=== PATIENT | female | born 1970 | race Caucasian/White ===

== ENCOUNTER → 2023-08-29 | Outpatient (CLI) | payer OTHER, SELFPAY ==
--- NOTE | 2023-08-29 12:49 | BI_ITS ---
MAMMOGRAPHY - BILATERAL SCREENING REASON FOR EXAM: Female, 53 years old. Routine annual screening examination. PERTINENT HISTORY: Non-contributory. TECHNIQUE: Digital bilateral breast forrest (3D mammographic acquisition) in the CC and MLO projections. 2-D mediolateral oblique (MLO) and craniocaudad (CC) views of both breasts were obtained. CAD: Full Field Digital Mammography with Computer Added Detection was performed. COMPARISON: Comparison is made with prior study November 10, 2010. FINDINGS: Breast Composition: The breasts are heterogeneously dense, which may obscure small masses. There are no dominant masses or suspicious calcifications. Stable small benign-appearing bilateral axillary lymph nodes. No other significant abnormalities are identified. There has been no significant change since the prior study. BI/SCRN MAMM (CAD)W/FORREST BILAT IMPRESSION: Stable bilateral screening mammogram. Yearly follow-up mammogram recommended. (A) ASSESSMENT CATEGORY: BIRADS Category 2: Benign. A letter regarding these results will be sent to the patient by the facility within 30 days. Approximately 10% of breast cancers are not detected by mammography. A normal mammogram should not delay biopsy of a clinically suspicious abnormality. [id number] Electronically Signed: Hector Lancaster MD at 14:16 EDT ,
--- OUTSIDE RECORDS SUMMARY | 2023-08-29 20:59 | XMS RPT_ITS | CCD ---
Author Name Unknown Address [address] [place] [address] Organization [facility] Care Team Providers Care Molder Punch Name Role Phone Lebron Acharya MD Unavailable Francisco Lafleur Primary Care Provider Darlene Peña PA-C Primary Care Provider [phone] DARLENE PEÑA Primary Care Unavailable LEIPSIC, DARLENE Consulting Unavailable LEIPSIC, DARLENE Attending Unavailable LEIPSIC, DARLENE Admitting Unavailable PROVIDER, UNKNOWN Consulting Unavailable LEIPSIC, DARLENE Admitting Unavailable LEIPSIC, DARLENE Primary Care Unavailable LEIPSIC, DARLENE Consulting Unavailable LEIPSIC, DARLENE Attending Unavailable PROVIDER, UNKNOWN Consulting Unavailable LEIPSIC, DARLENE Admitting Unavailable LEIPSIC, DARLENE Primary Care Unavailable LEIPSIC, DARLENE Consulting Unavailable LEIPSIC, DARLENE Attending Unavailable PROVIDER, UNKNOWN Consulting Unavailable LEIPSIC, DARLENE Admitting Unavailable LEIPSIC, DARLENE Primary Care Unavailable LEIPSIC, DARLENE Consulting Unavailable LEIPSIC, DARLENE Attending Unavailable PROVIDER, UNKNOWN Consulting Unavailable [place] Darlene SOLARES Primary Care Provider [phone] DARLENE PEÑA Primary Care Unavailable LEOLA, DARLENE Davila Primary Care Unavailable Medications Current Medications Medication Drug Class(es) Dates Sig (Normalized) Sig (Original) doxycycline hyclate 100 mg oral tablet (1 source) Tetracycline-clas s Drug Start: 11-14-2021 End: 11-21-2021 take 1 tablet by mouth twice daily doxycycline (VIBRA-TABS) 100 mg tablet Indications: Skin infection Take 1 tablet by mouth twice daily for 7 days. 14 tablet 0 11/14/2021 11/21/2021 Active Completed/Discontinued Medications Medication Drug Class(es) Dates Sig (Normalized) Sig (Original) 200 actuat albuterol 0.09 mg/actuat metered dose inhaler (2 sources) beta2-Adrenergic Agonist Start: 08-22-2005 End: 07-03-2022 take 2 puff(s) by inhalation every four hours as needed ALBUTEROL 90 MCG/ACTUATION AEROSOL INHALER Indications: Acute bronchitis 2 puffs q 4 hrs as needed 1 1 08/22/2005 07/03/2022 Discontinued Problems Active Problems Problem Classification Problem Date Documented Date Episodic/Chronic Diabetes mellitus with complications (3 sources) Type 2 diabetes mellitus with hyperglycemia; Translations: [Type 2 diabetes mellitus with hyperglycemia] Onset: 11-16-2022 Chronic Disorders of lipid metabolism (1 source) Hyperlipidemia, unspecified; Translations: [Hyperlipidemia, unspecified] Onset: 11-16-2022 Chronic Essential hypertension (4 sources) Benign essential hypertension; Translations: [Essential (primary) hypertension] Onset: 02-01-2005 02-01-2005 Chronic Fluid and electrolyte disorders (3 sources) Hypokalemia; Translations: [Hypokalemia] Onset: 12-06-2022 Episodic Immunizations and screening for infectious disease (1 source) Contact with and (suspected) exposure to other viral communicable diseases; Translations: [Contact with or exposure to other viral diseases] Episodic Influenza (1 source) Influenza-like illness; Translations: [Influenza due to unidentified influenza virus with other respiratory manifestations] Episodic Mycoses (1 source) Opportunistic mycosis; Translations: [Candidiasis, unspecified] Episodic Osteoarthritis (2 sources) Osteoarthrosis of the carpometacarpal joint of the thumb; Translations: [Unilateral primary osteoarthritis of first carpometacarpal joint, left hand] Onset: 07-25-2018 07-25-2018 Chronic Other circulatory disease (1 source) Elevated blood pressure; Translations: [Elevated blood-pressure reading, without diagnosis of hypertension] Episodic Other nutritional; endocrine; and metabolic disorders (4 sources) Metabolic syndrome X; Translations: [Metabolic syndrome] Onset: 02-01-2005 02-01-2005 Chronic Skin and subcutaneous tissue infections (1 source) Infection of skin; Translations: [Local infection of the skin and subcutaneous tissue, unspecified] Episodic Viral infection (1 source) Disease caused by 2019-nCoV; Translations: [COVID-19] 06-10-2023 Episodic Past or Other Problems Problem Classification Problem Date Documented Da te Episodic/Chronic Diabetes mellitus without complication (4 sources) Impaired fasting glycemia; Translations: [Impaired fasting glucose] Onset: 02-01-2005 02-01-2005 Episodic Unclassified (1 source) Problem Results Test Name Value Interpretation Reference Range Facil ity Vital Signs Date Time Vital Sign Value Performing Clinician Facility 06-10-2023 11:24-0500 Body temperature 100.51 [degF] Yahir Miguel RELEASE OF INFORMATION SPECIALIST.DINING ROOM HELPER Work Phone: [facility] 06-10-2023 11:24-0500 Body weight 145.33 kg Yahir Miguel RELEASE OF INFORMATION SPECIALIST.DINING ROOM HELPER Work Phone: [facility] 06-10-2023 11:24-0500 Diastolic blood pressure 106 mm[Hg] Yahir Miguel RELEASE OF INFORMATION SPECIALIST.DINING ROOM HELPER Work Phone: [facility] 06-10-2023 11:24-0500 Heart rate 87 /min Yahri Miguel RELEASE OF INFORMATION SPECIALIST.DINING ROOM HELPER Work Phone: [facility] 06-10-2023 11:24-0500 Respiratory rate 18 /min Yahir Miguel RELEASE OF INFORMATION SPECIALIST.DINING ROOM HELPER Work Phone: [facility] 06-10-2023 11:24-0500 SaO2% (BldA) [Mass fraction] 97 % Yahir Miguel RELEASE OF INFORMATION SPECIALIST.DINING ROOM HELPER Work Phone: [facility] 06-10-2023 11:24-0500 Systolic blood pressure 182 mm[Hg] Yahir Miguel RELEASE OF INFORMATION SPECIALIST.DINING ROOM HELPER Work Phone: [facility] 07-03-2022 11:17-0500 Body temperature 99.61 [degF] Cassius Ortega MD Work Phone: [facility] 07-03-2022 11:17-0500 Body weight 138.53 kg Cassius Ortega MD Work Phone: [facility] 07-03-2022 11:17-0500 Diastolic blood pressure 80 mm[Hg] Cassius Ortega MD Work Phone: [facility] 07-03-2022 11:17-0500 Heart rate 100 /min Cassius Ortega MD Work Phone: [facility] 07-03-2022 11:17-0500 Respiratory rate 16 /min Cassius Ortega MD Work Phone: [facility] 07-03-2022 11:17-0500 SaO2% (BldA) [Mass fraction] 96 % Cassius Ortega MD Work Phone: [facility] 07-03-2022 11:17-0500 Systolic blood pressure 122 mm[Hg] Cassius Ortega MD Work Phone: [facility] 11-14-2021 13:37-0400 Diastolic blood pressure 92 mm[Hg] [facility] Work Phone: [facility] 11-14-2021 13:37-0400 Systolic blood pressure 152 mm[Hg] [facility] Work Phone: [facility] 11-14-2021 13:29-0400 Body temperature 95.9 [degF] [facility] Work Phone: [facility] 11-14-2021 13:29-0400 Body weight 126.28 kg [facility] Work Phone: [facility] 11-14-2021 13:29-0400 Heart rate 75 /min [facility] Work Phone: [facility] 11-14-2021 13:29-0400 Respiratory rate 21 /min [facility] Work Phone: [facility] 11-14-2021 13:29-0400 SaO2% (BldA) [Mass fraction] 97 % [facility] Work Phone: [facility] NEGATED: Highlighted [id number] 14:20-0500 BMI (Body Mass Index) 46.47 kg/m2 Tracey Wasserman LPN [facility] Work Phone: NEGATED: Highlighted [id number] 14:20-0500 Body weight 140.16 kg Tracey Wasserman LPN [facility] Work Phone: NEGATED: Highlighted [id number] 14:20-0500 Body weight 140 kg Tracey Wasserman SILVER RECOVERY OPERATOR [facility] Work Phone: NEGATED: Highlighted [id number] 14:20-0500 BP Diastolic 81 mm[Hg] Tracey Lux SILVER RECOVERY OPERATOR [facility] Work Phone: NEGATED: Highlighted [id number] 14:20-0500 BP Systolic 107 mm[Hg] Tracey Lux SILVER RECOVERY OPERATOR [facility] Work Phone: NEGATED: Highlighted [id number] 14:20-0500 Height 173.99 cm Tracey Lux SILVER RECOVERY OPERATOR [facility] Work Phone: NEGATED: Highlighted [id number] 14:20-0500 Height 174 cm Tracey Lux SILVER RECOVERY OPERATOR [facility] Work Phone: NEGATED: Highlighted [id number] 14:20-0500 Pulse (Heart Rate) 73 /min Tracey Wasserman SILVER RECOVERY OPERATOR [facility] Work Phone: Encounters Encounter Date Encounter Type Care Provider Facility Start: 06-10-2023 End: 06-10-2023 ambulatory [facility] Facility:[facility] Start: 06-10-2023 End: 06-10-2023 Patient encounter procedure Yahir Miguel APRN.CNP Work Phone: [facility] Procedures Date Procedure Procedure Detail Performing Clinician Start: 07-25-2018 End: 07-25-2018 Blood pressure within normal parameters - no follow-up required Lebron Acharya MD Work Phone: Start: 07-25-2018 End: 07-25-2018 BMI documented as above normal parameters - follow-up documented Lebron Acharya MD Work Phone: Start: 07-25-2018 End: 07-25-2018 Documentation of current medications Lebron Acharya MD Work Phone: Start: 07-25-2018 End: 07-25-2018 Osteoarthritis assess Lebron Acharya MD Work Phone: Start: 07-25-2018 End: 07-25-2018 Pain assessment documented as positive - follow-up documented Lebron Acharya MD Work Phone: Start: 07-25-2018 End: 07-25-2018 Radex hand minimum 3 views Lebron Acharya MD Work Phone: Start: 07-25-2018 End: 07-25-2018 DEON PEE - CUSTOM PREFAB Lebron Acharya MD Work Phone: Start: 07-25-2018 End: 07-25-2018 Thumb Spica Lebron Acharya MD Work Phone: Start: 07-25-2018 End: 07-25-2018 Tobacco non-user Lebron Acharya MD Work Phone: Start: 07-25-2018 End: 07-25-2018 WHFO CUSTOM STATIC Lebron Acharya MD Work Phone: Start: 10-28-2002 Lipid 1996 panel - S maria c or Plasma Yahir Miguel APRN.DINING ROOM HELPER Work Phone: NEGATED: Highlighted rowStart: 07-25-2018 End: 07-25-2018 Documentation of current medications Tracey Wasserman LPN Plan of Treatment Date Care Activity Detail Author Start: 11-16-2025 Diabetes Screening Diabetes Screenin g [facility] Start: 02-16-2023 Covid-19 Vaccine ( season) Covid-19 Vaccine ( season) [facility] Start: 02-16-2023 Influenza vaccination Influenza Vacc ine (#1) [facility] Start: 07-03-2022 End: 07-17-2022 Influenza virus A and B RNA and SARS-CoV-2 (COVID-19) N gene panel - Respiratory specimen by VITO with probe detection [facility] Work Phone: Immunizations Immunization Date Immunization Notes Care Provider Fa cilivalorie 05-03-2020 influenza virus vaccine, unspecified formulation Yahir Miguel APRN.DINING ROOM HELPER Work Phone: [facility] 03-18-2009 influenza virus vaccine, unspecified formulation [facility] Work Phone: [facility] 05-12-2008 influenza virus vaccine, unspecified formulation [facility] Work Phone: [facility] Work Phone: 05-15-2006 influenza virus vaccine, unspecified formulation [facility] Work Phone: [facility] 01-13-2005 tetanus and diphther ia toxoids, not adsorbed, for adult use [facility] Work Phone: [facility] Work Phone: Payers Date Payer Category Payer Private Health Insurance [id number] 2019 Private Health Insurance JENNIFER YI TABATHA [id number] 2019-Present [phone] [address] [place] [address] Open Access [id number] 2019 Private Health Insurance [id number] 2019 Private Health Insurance [id number] 1968 Unknown [id number] 1968 Unknown [id number] 1968 Unknown [id number] 1968 Unknown [id number] Private Health Insurance [id number] Social History Date Type Detail Facility Start: 07-25-2018 End: 07-25-2018 Assertion Unknown if ever smoked [facility] Work Phone: Start: 07-03-2022 Tobacco smoking status NHIS Ex-smoker [facility] Start: 11-14-2021 End: 06-10-2023 Alcohol intake Current drinker of alcohol (finding) [facility] Start: 1970 Sex Assigned At Not on file [facility] History of tobacco use Current smoker [facility] Work Phone: History of tobacco use Cigarette Smoker [facility] Work Phone: Start: 07-03-2022 Tobacco use and exposure Smokeless tobacco non-user [facility] Work Phone: Start: 07-03-2022 Tobacco Comment quit 2002, smo ked 1-2 cigarettes daily [facility] Start: 05-26-2020 End: 06-10-2023 History of Social function [facility] Start: 05-26-2020 End: 06-10-2023 Tobacco use panel [facility] National Score (1-100), lower number is lower risk Not on file [facility] NEGATED: Highlighted rowStart: 07-25-2018 End: 07-25-2018 Employment detail Employment detail [facility] Work Phone: NEGATED: Highlighted rowStart: 07-25-2018 End: 07-25-2018 How many days of moderate to strenuous exercise, like a brisk walk, did you do in the last 7 days? How many days of moderate to strenuous exercise, like a brisk walk, did you do in the last 7 days? [facility] Work Phone: Clinical Notes 11-14-2021 to 06-10-2023 Yahir Miguel APRN.CNP - 06/10/2023 11:59 AM ESTTelephone Encounter - Brittnee Canchola - 07/04/2022 7:22 AM ESTTelephone Encounter - Yahir Miguel APRN.CNP - 07/04/2022 7:17 AM EST Note Date & Type Note Facility 06-10-2023 Note HNO ID: [id number] Author: Yahir Miguel APRN.CNP Service: ? Author Type: Nurse Practitioner Type: Progress Notes Filed: 06/10/2023 12:11 PM Note Text: Subjective HPI HPI Lubna Mast is a 52 year old female who presents today for CC of cough, congestion, chills, body aches. This started 1 day ago, tested pos for covid. Denies cp/sob .Patient presents with: Covid Positive: Tested positive for COVID this am-wants antiviral medication ordered PAST MEDICAL HISTORY Diagnosis Date Dysmetabolic syndrome X Essential hypertension, benign Impaired fasting glucose PAST SURGICAL HISTORY Procedure Laterality Date DILATION AND CURETTAGE DXAND/THER NONOBSTETRIC 1998 Dilation AND curettage ALLERGIES Patient has no known allergies. MEDICATIONS escitalopram oxalate (LEXAPRO) 10 mg tablet glipiZIDE (GLUCOTROL) 5 mg tablet Take 5 mg by mouth daily at bedtime. hydroCHLOROthiazide (HYDRODIURIL, ESIDRIX) 12.5 mg tablet Take 12.5 mg by mouth once daily. METFORMIN HCL (METFORMIN ORAL) Take by mouth. LABETALOL 100 MG TAB Take one(1) tablet two(2) times daily. nirmatrelvir tablet 300 mg (150 mg x 2) and ritonavir tablet 100 mg in a dose pack (PAXLOVID) Administer TWO pink nirmatrelvir 150 mg tablets and ONE white ritonavir 100 mg tablet for a total of three tablets twice daily. FAMILY HISTORY Problem Relation Age of Onset Diabetes Paternal Grandfather other (Ovarian Ca [Other]) Paternal Grandmother Social History Tobacco Use Smoking status: Former Years: 5 Types: Cigarettes Smokeless tobacco: Never Tobacco comments: quit 2002, smoked 1-2 cigarettes daily Substance Use Topics Alcohol use: Yes Comment: very rarely Drug use: No Review of Systems Constitutional: Negative for fever. HENT: Positive for congestion and ear pain. Negative for ear discharge, nosebleeds and sore throat. Respiratory: Positive for cough. Negative for shortness of breath and wheezing. Cardiovascular: Negative for chest pain. Musculoskeletal: Negative for neck pain. Objective Blood pressure 182/106, pulse 87, temperature (!) 38.1 ?C (100.5 ?F), temperature source Tympanic, resp. rate 18, weight (!) 145.3 kg (320 lb 6.4 oz), last menstrual period 07/19/2016, SpO2 97%. Physical Exam Constitutional: General: She is not in acute distress. Appearance: She is not toxic-appearing or diaphoretic. HENT: Head: Normocephalic and atraumatic. Cardiovascular: Rate and Rhythm: Normal rate and regular rhythm. Heart sounds: Normal heart sounds, S1 normal and S2 normal. Pulmonary: Effort: Pulmonary effort is normal. Breath sounds: Normal breath sounds. Lymphadenopathy: Cervical: No cervical adenopathy. Right cervical: No superficial cervical adenopathy. Left cervical: No superficial cervical adenopathy. Neurological: Mental Status: She is alert and oriented to person, place, and time. Gait: Gait is intact. ASSESSMENT/PLAN: 1. COVID-19 - ICD9: 079.89, ICD10: U07.1 Discussed quarantine, social distancing otc medications discussed Push fluids -If you experience chest pain/shortness of breath go to ER 2022 creatinine .85 per outside lab result - NIRMATRELVIR 300 MG (150 MG X2)-RITONAVIR 100 MG TABLET,DOSE PACK Yahir Miguel APRN.[facility] 06-10-2023 History of Presen t illness Narrative Subjective HPI HPI Lubna Mast is a 52 year old female who presents today for CC of cough, congestion, chills, body aches. This started 1 day ago, tested pos for covid. Denies cp/sob .Patient presents with: Covid Positive: Tested positive for COVID this am-wants antiviral medication ordered PAST MEDICAL HISTORY Diagnosis Date Dysmetabolic syndrome X Essential hypertension, benign Impaired fasting glucose PAST SURGICAL HISTORY Procedure Laterality Date DILATION & CURETTAGE DX&/THER NONOBSTETRIC 1998 Dilation & curettage ALLERGIES Patient has no known allergies. MEDICATIONS escitalopram oxalate (LEXAPRO) 10 mg tablet glipiZIDE (GLUCOTROL) 5 mg tablet Take 5 mg by mouth daily at bedtime. hydroCHLOROthiazide (HYDRODIURIL, ESIDRIX) 12.5 mg tablet Take 12.5 mg by mouth once daily. METFORMIN HCL (METFORMIN ORAL) Take by mouth. LABETALOL 100 MG TAB Take one(1) tablet two(2) times daily. nirmatrelvir tablet 300 mg (150 mg x 2) and ritonavir tablet 100 mg in a dose pack (PAXLOVID) Administer TWO pink nirmatrelvir 150 mg tablets and ONE white ritonavir 100 mg tablet for a total of three tablets twice daily. FAMILY HISTORY Problem Relation Age of Onset Diabetes Paternal Grandfather other (Ovarian Ca [Other]) Paternal Grandmother Social History Tobacco Use Smoking status: Former Years: 5 Types: Cigarettes Smokeless tobacco: Never Tobacco comments: quit 2002, smoked 1-2 cigarettes daily Substance Use Topics Alcohol use: Yes Comment: very rarely Drug use: No Review of Systems Constitutional: Negative for fever. HENT: Positive for congestion and ear pain. Negative for ear discharge, nosebleeds and sore throat. Respiratory: Positive for cough. Negative for shortness of breath and wheezing. Cardiovascular: Negative for chest pain. Musculoskeletal: Negative for neck pain. Objective Blood pressure 182/106, pulse 87, temperature (!) 38.1 C (100.5 F), temperature source Tympanic, resp. rate 18, weight (!) 145.3 kg (320 lb 6.4 oz), last menstrual period 07/19/2016, SpO2 97%. Physical Exam Constitutional: General: She is not in acute distress. Appearance: She is not toxic-appearing or diaphoretic. HENT: Head: Normocephalic and atraumatic. Cardiovascular: Rate and Rhythm: Normal rate and regular rhythm. Heart sounds: Normal heart sounds, S1 normal and S2 normal. Pulmonary: Effort: Pulmonary effort is normal. Breath sounds: Normal breath sounds. Lymphadenopathy: Cervical: No cervical adenopathy. Right cervical: No superficial cervical adenopathy. Left cervical: No superficial cervical adenopathy. Neurological: Mental Status: She is alert and oriented to person, place, and time. Gait: Gait is intact. ASSESSMENT/PLAN: 1. COVID-19 - ICD9: 079.89, ICD10: U07.1 Discussed quarantine, social distancing otc medications discussed Push fluids -If you experience chest pain/shortness of breath go to ER 2022 creatinine .85 per outside lab result - NIRMATRELVIR 300 MG (150 MG X2)-RITONAVIR 100 MG TABLET,DOSE PACK Yahir Miguel APRN.DINING ROOM HELPER documented in this encounter [facility] 07-04-2022 Miscellaneous Notes Patient given results and verbalized understanding of instructions given. Brittnee Canchola Please notify that covid/flu testing negative. Continue with plan of care as discussed during visit. documented in this encounter [facility] 07-03-2022 Influenza virus A and B RNA and SARS-CoV-2 (COVID-19) N gene panel VITO+probe (Resp) COVID 19 RESULT: SARS-CoV-2 (Agent of COVID-19) Not Detected by RT-PCR or equivalent method. This test was developed and its performance characteristics determined by [facility]'s [facility] [place]. This test has been authorized by FDA under an Emergency Use Authorization (EUA). This test has been validated in accordance with the FDA's Guidance Document Policy for Diagnostics Testing in Laboratories Certified to Perform High Complexity Testing under CLIA prior to Emergency use Authorization for Coronavirus Disease 2019 during the Public Health Emergency issued on August 16, 2019. Test performed by [facility], [facility] [place], [address] [place] [address]. INFLUENZA A PCR: Negative for Influenza A by RT-PCR INFLUENZA B PCR: Negative for Influenza B by RT-PCR [facility] Influenza-like illness- Primary Influenza with other respiratory manifestations Exposure to influenza Contact with or exposure to other viral diseases [facility] COVID-19- Primary documented in this encounter [facility] Summary Purpose Family History No Family History Records FoundNo Family History Records FoundThere may be information available, but it has not been provided by the sender.No Family History Records FoundNo Family History Records Found Advance Directives No Advanced Directives Records FoundNo Advanced Directives Records FoundThere may be information available, but it has not been provided by the sender.No Advanced Directives Records FoundNo Advanced Directives Records Found Chief Complaint Chief Complaint Description Start Date bilateral hand pain Preliminary chief co mplaint data, not yet signed by the author as of Instructions Instruction Description Start Date Patient advised to follow-up with Primary Care Physician for BMI management. Assessments There may be information available, but it has not been provided by the sender. Review of System There may be information available, but it has not been provided by the sender. History of Present Illness There may be information available, but it has not been provided by the sender. Health Concerns Infection Onset Date Last Indicated Resolved Time COVID-19 Rule-Out 07/03/2022 07/03/2022 Additional Source Comments INFORMATION SOURCE (unrecogn ized section and content) DATE CREATED AUTHOR AUTHOR'S ORGANIZ ATION 08/30/2019 [facility] DATE CREATED AUTHOR AUTHOR'S ORGANIZ ATION 12/16/2022 [facility] DATE CREATED AUTHOR AUTHOR'S ORGANIZ ATION 06/10/2023 [facility] Reason for Visit (unrecogniz ed section and content) Reason Comments Edema cellulitis on right leg x 1 day Reason Comments Cough fever, bodyaches x l ast night, exposed to flu A Reason Comments Results Reason Comments Covid Positive Tested positive for COVID this am-wants antiviral medication ordered Source Comments (unrecognize d section and content) In the event this informatio n is protected by the Federal Confidentiality of Alcohol and Drug Abuse Patient Records regulations: The Federal rules restrict any use of the information to criminally investigate or prosecute any alcohol or drug abuse patient.[facility] the event this information is protected by the Federal Confidentiality of Alcohol and Drug Abuse Patient Records regulations: The Federal rules restrict any use of the information to criminally investigate or prosecute any alcohol or drug abuse patient.[facility] the event this information is protected by the Federal Confidentiality of Alcohol and Drug Abuse Patient Records regulations: The Federal rules restrict any use of the information to criminally investigate or prosecute any alcohol or drug abuse patient.[facility] the event this information is protected by the Federal Confidentiality of Alcohol and Drug Abuse Patient Records regulations: The Federal rules restrict any use of the information to criminally investigate or prosecute any alcohol or drug abuse patient.[facility] Care Teams (unrecognized sec tion and content) Molder [employer]unch Relationship Specialty Start Date End Date Darlene Peña PA-C [address] [place] [address] PCP - General Family Medicine 07/03/22 Molder Punch Relationship Specialty Start Date End Date Darlene Peña PA-C [address] [place] [place] [address] PCP - General Family Medicine 07/03/22 Molder Punch Relationship Specialty Start Date End Date Darlene Peña PA-C [address] [address] PCP - General Family Medicine 07/03/22 FOR RECORDS PERTAINING TO PATIENTS WHO ARE OR HAVE BEEN ENROLLED IN A CHEMICAL DEPENDENCY/SUBSTANCEABUSE PROGRAM, SOME INFORMATION MAY BE OMITTED. This clinical summary was aggregated from multiple sources. Caution should be exercised in using it in the provision of clinical care. This summary normalizes information from multiple sources, and as a consequence, information in this document may materially change the coding, format and clinical context of patient data. In addition, data may be omitted in some cases. CLINICAL DECISIONS SHOULD BE BASED ON THE PRIMARY CLINICAL RECORDS. [facility] [employer] [facility]. provides no warranty or guarantee of the accuracy or completeness of information in this document.
== END | disposition home or self-care (01) ==
LOC: OPBI 12:48
PROVIDERS: PCP Family Medicine; Referring Provider Family Medicine; Visit Provider Family Medicine
DX: Z12.31 Encounter for screening mammogram for malignant neoplasm of breast (principal)
CPT/HCPCS: 77063; 77067